=== PATIENT | female | born 1965 | race Caucasian/White ===

== ENCOUNTER 2021-07-16 09:39 | Emergency (ER) | payer SELFPAY ==
[~2021-07-16] VITALS: Ht 157.5 cm; Wt 68.2 kg
[~2021-07-16 09:39] MED LIST: FLEXERIL 1010 MG/TAB PO; MOTRIN IB200 MG PO; NORCO 325 MG-51 TAB PO; TYLENOL PM EXTR1 TA1 PO
[2021-07-16 09:57] VITALS: TEMP 98.2
[2021-07-16 10:48] LABS: BASO % 0.3 % (0.0-2.0); EOS % 0.2 % (0.0-4.0); GRAN # 8.2 K/mm3 (1.4-6.5); GRAN % 87.2 % (42.2-75.2); HEMOGLOBIN 13.8 g/dl (12.5-16.0); LYMPH # 0.8 K/mm3 (1.2-3.4); LYMPH % 8.7 % (20.0-51.0); MEAN CELL VOLUME 95 fl (80.0-100.0); MEAN CORPUSCULAR HEMOGLOBIN 32 pg (27-31); MEAN CORPUSCULAR HGB CONC 34 g/dl (33.0-37.0); MEAN PLATELET VOLUME 8.9 fl (7.4-10.4); MONO # 0.3 K/mm3 (0.1-0.6); MONO % 3.4 % (1.7-9.3); PLATELET COUNT 312 K/mm3 (130-400); RED BLOOD COUNT 4.31 M/mm3 (4.10-5.30); REDCELL DISTRIBUTION WIDTH-CV 12.8 % (11.5-14.5)
[2021-07-16 11:01] LABS: ALBUMIN 3.9 gm/dL (3.5-5.0); BILIRUBIN,TOTAL 0.5 mg/dL (0.2-1.2); C-REACTIVE PROTEIN 8.23 mg/dL (0.00-0.50); CALCIUM 9.1 mg/dL (8.4-10.2); CREATININE, serum 0.79 mg/dL (0.57-1.11); POTASSIUM 4.3 mmol/L (3.5-4.5); TOTAL PROTEIN 8.3 gm/dL (6.2-8.1)
[2021-07-16 12:21] LABS: COLLECTION METHOD CLEAN CATCH
[2021-07-16 12:30] LABS: MUCOUS Present (NOT PRESENT); PH 5 (5-8); SQUAMOUS EPITHELIAL 0-2 /hpf (0-10); URINE APPEARANCE Clear (CLEAR/HAZY); URINE BACTERIA None Seen /hpf (NONE SEEN); URINE BILIRUBIN Negative (NEGATIVE); URINE BLOOD Negative (NEGATIVE); URINE COLOR Amber (YELLOW); URINE GLUCOSE Negative (NEGATIVE); URINE KETONE Negative (NEGATIVE); URINE LEUKOCYTE ESTERASE Negative (NEGATIVE); URINE NITRATE Positive (NEGATIVE); URINE PROTEIN(semi-quant) 1+ (NEGATIVE); URINE RBC 0-2 /hpf (0-2)
[2021-07-16] MEDS ORDERED: CIPRO 500MG TA500 MG PO (13:05)
[2021-07-16] MEDS ORDERED: ZOFRAN ODT4 MG PO (13:17)
[2021-07-16 13:18] VITALS: BP 147/96; PULSE 109
== END 2021-07-16 13:22 | disposition home or self-care (01) ==
LOC: COL.ER 09:39
PROVIDERS: Nurse Practitioner
DX: N39.0 Urinary tract infection, site not specified (principal); F17.200 Nicotine dependence, unspecified, uncomplicated; Z98.890 Other specified postprocedural states
CPT/HCPCS: J1170; J2405; J7030; J8540

== ENCOUNTER 2021-07-24 23:15 | Emergency (ER) | payer SELFPAY ==
[~2021-07-24] VITALS: Ht 157.5 cm; Wt 84.0 kg
[~2021-07-24 23:15] MED LIST changes: +CIPRO 500MG TA500 MG PO; +ZOFRAN ODT4 MG PO
[2021-07-24 23:20] VITALS: TEMP 97.6
[2021-07-24 23:48] LABS: HEMATOCRIT 43.9 % (37.0-47.0); HEMOGLOBIN 14.6 g/dl (12.5-16.0); MEAN CELL VOLUME 96 fl (80.0-100.0); MEAN CORPUSCULAR HEMOGLOBIN 32 pg (27-31); MEAN CORPUSCULAR HGB CONC 33 g/dl (33.0-37.0); MEAN PLATELET VOLUME 8.6 fl (7.4-10.4); PLATELET COUNT 428 K/mm3 (130-400); RED BLOOD COUNT 4.59 M/mm3 (4.10-5.30); REDCELL DISTRIBUTION WIDTH-CV 12.7 % (11.5-14.5)
[2021-07-24 23:58] LABS: INR 0.9 (0.8-3.0); PROTHROMBIN TIME 10.5 SECONDS (9.7-12.8)
[2021-07-25] LABS: BAND 2 % (0-10); EOSINOPHIL 2 % (0-4); LYMPHOCYTE 15 % (20.0-51.0); METAMYELOCYTE 3 % (0-0); NEUTROPHILS 76 % (42.0-75.2); PLATELET ESTIMATE INCREASED (NORMAL)
[2021-07-25 00:01] LABS: ALBUMIN 4.3 gm/dL (3.5-5.0); BILIRUBIN,TOTAL 0.4 mg/dL (0.2-1.2); CALCIUM 10.1 mg/dL (8.4-10.2); CREATININE, serum 0.83 mg/dL (0.57-1.11); PARTIAL THROMBOPLASTIN TIME 33.3 SECONDS (26.0-37.0); POTASSIUM 4.3 mmol/L (3.5-4.5); TOTAL PROTEIN 9.1 gm/dL (6.2-8.1)
[2021-07-25 00:14] LABS: TROPONIN-I 0.77 ng/mL (0.00-0.033)
[2021-07-25 01:33] VITALS: BP 179/99; PULSE 80
== END 2021-07-25 01:58 | disposition short-term general hospital (02) ==
LOC: COL.ER 23:15
PROVIDERS: Emergency Medicine
DX: I21.3 ST elevation (STEMI) myocardial infarction of unspecified site (principal); I25.119 Atherosclerotic heart disease of native coronary artery with unspecified angina pectoris; I10 Essential (primary) hypertension; F17.210 Nicotine dependence, cigarettes, uncomplicated; Z20.822 Contact with and (suspected) exposure to COVID-19
CPT/HCPCS: J1644; J2270; J2405; J2765; J3101; J7030

== ENCOUNTER → 2023-10-17 | Outpatient (CLI) | payer OTHER ==
[~2023-10-17] MED LIST changes: +Albuterol 0.083% Neb Soln 2.5 MG/3 ML UD IH ONE
== END ==
LOC: COL.CARD 09:58
DX: R06.02 Shortness of breath (principal); F17.210 Nicotine dependence, cigarettes, uncomplicated

== ENCOUNTER 2023-12-09 17:14 | Emergency (ER) | payer SELFPAY ==
[~2023-12-09] VITALS: Ht 157.5 cm; Wt 113.2 kg
[~2023-12-09 17:14] MED LIST changes: -Albuterol 0.083% Neb Soln 2.5 MG/3 ML UD IH ONE
[2023-12-09 17:21] VITALS: TEMP 98.1
[2023-12-09 17:50] LABS: BASO % 0.4 % (0.0-2.0); EOS # 0.2 K/mm3 (0.0-0.7); EOS % 2.9 % (0.0-4.0); GRAN # 5.9 K/mm3 (1.4-6.5); GRAN % 72.9 % (42.2-75.2); HEMATOCRIT 38.2 % (37.0-47.0); HEMOGLOBIN 12.6 g/dl (12.5-16.0); LYMPH # 1.6 K/mm3 (1.2-3.4); MEAN CELL VOLUME 101 fl (80.0-100.0); MEAN CORPUSCULAR HEMOGLOBIN 33 pg (27-31); MEAN CORPUSCULAR HGB CONC 33 g/dl (33.0-37.0); MONO # 0.3 K/mm3 (0.1-0.6); MONO % 3.4 % (1.7-9.3); PLATELET COUNT 359 K/mm3 (130-400); REDCELL DISTRIBUTION WIDTH-CV 13.7 % (11.5-14.5)
[2023-12-09 18:04] LABS: ALBUMIN 4.3 g/dL (3.5-5.0); BILIRUBIN,TOTAL 0.4 mg/dL (0.2-1.2); CREATININE, serum 0.79 mg/dL (0.57-1.11); POTASSIUM 4.2 mEq/L (3.5-4.5); TOTAL PROTEIN 9.1 g/dl (6.2-8.1)
[2023-12-09 18:10] LABS: TROPONIN-I 0.015 ng/mL (0.00-0.033)
[2023-12-09] MEDS ORDERED: Iohexol 300 - 100 ML VIAL IV ONE (19:40)
[2023-12-09] MEDS ORDERED: NS 50 ML IV SCH (19:40)
[2023-12-09] MEDS ORDERED: Furosemide 40 MG/4 ML VIAL IV ONE (21:00)
[2023-12-09] MEDS ORDERED: LASIX 20MG TABL20 MG PO (21:06)
[2023-12-09 22:10] VITALS: BP 137/79; PULSE 84
== END 2023-12-09 22:10 | disposition home or self-care (01) ==
LOC: COL.ER 17:14
PROVIDERS: Nurse Practitioner
DX: R06.02 Shortness of breath (principal); R91.1 Solitary pulmonary nodule; R60.0 Localized edema; R07.89 Other chest pain; I25.2 Old myocardial infarction; Z95.5 Presence of coronary angioplasty implant and graft; F17.210 Nicotine dependence, cigarettes, uncomplicated
CPT/HCPCS: J1940; Q9967